=== PATIENT | male | born 1930 | race Hispanic/Latino ===

== ENCOUNTER 2018-05-29 16:04 | Inpatient (IN) | payer MEDICARE ==
[~2018-05-29] VITALS: Ht 177.8 cm; Wt 113.1 kg
[2018-05-29 17:32] LABS: BASOPHILS % 0.6 % (0.0-1.0); EOSINOPHILS # (AUTO) 0.2 (0.0-0.4); HEMATOCRIT 43.9 % (38.2-49.6); HEMOGLOBIN 14.6 g/dL (14.0-18.0); LYMPHOCYTES # (AUTO) 2.4 (1.0-3.2); LYMPHOCYTES % 45.7 % (18.0-39.1); MEAN CORPUSCULAR HEMOGLOBIN 31.4 pg (28-32); MEAN CORPUSCULAR HGB CONC 33.3 g/dL (31-35); MEAN CORPUSCULAR VOLUME 94.4 fL (81-99); MONOCYTES # (AUTO) 0.5 (0.2-0.8); MONOCYTES % 10.2 % (4.4-11.3); NEUTROPHILS # (AUTO) 2.1 (2.1-6.9); NEUTROPHILS % 40.3 % (38.7-80.0); PLATELET COUNT 167 x10e3/uL (140-360); RED BLOOD COUNT 4.65 x10e6/uL (4.3-5.7); RED CELL DISTRIBUTION WIDTH 14.9 % (11.7-14.4)
[2018-05-29 17:39] LABS: PARTIAL THROMBOPLASTIN TIME 32.3 seconds (23.8-35.5)
[2018-05-29 17:47] LABS: CREATINE KINASE 46 IU/L (30-200)
[2018-05-29 17:48] LABS: INR 0.99
[2018-05-29 17:51] LABS: ALANINE AMINOTRANSFERASE 22 IU/L (0-55); ALBUMIN 3.6 g/dL (3.5-5.0); ALBUMIN/GLOBULIN RATIO 1.2 (0.8-2.0); ALKALINE PHOSPHATASE 69 IU/L (40-150); ANION GAP 10.1 mmol/L (8-16); BLOOD UREA NITROGEN 18 mg/dL (7-26); BUN/CREATININE RATIO 22 (6-25); CALCIUM 9.6 mg/dL (8.4-10.2); CARBON DIOXIDE 26 mmol/L (22-29); CHLORIDE 106 mmol/L (98-107); CREATININE, SERUM 0.82 mg/dL (0.72-1.25); EST GLOMERULAR FILTRATION RATE > 60 ML/MIN (60-); GLUCOSE 89 mg/dL (74-118); POTASSIUM 4.1 mmol/L (3.5-5.1); SODIUM 138 mmol/L (136-145)
--- NOTE | 2018-05-29 18:12 | Diagnostic Imaging Report ---
EXAMINATION: CHEST SINGLE (PORTABLE) INDICATION: ^CHEST PAIN ^[id number] ^1720 ^Y COMPARISON: None FINDINGS: AP view TUBES and LINES: None. LUNGS: Lungs are well inflated. Left lower lobe consolidation. Bilateral interstitial edema. PLEURA: No pleural effusion or pneumothorax. HEART AND MEDIASTINUM: Mild enlargement of the cardiac silhouette. Mild atherosclerotic calcifications of the aortic arch. BONES AND SOFT TISSUES: No acute osseous lesion. Soft tissues are unremarkable. UPPER ABDOMEN: No free air under the diaphragm. IMPRESSION: Left lower lobe consolidation suggestive of pneumonia. Recommend follow-up chest radiograph in 4-6 weeks. Bilateral interstitial edema. Signed by: Dr. Anca Mancuso M.D. on 05/29/2018 6:08 PM
[2018-05-29 21:24] VITALS: BP 152/67
--- NOTE | 2018-05-29 21:24 | NUR ---
PT ARRIVED ON THE UNIT VIA STRETCHER 2123. PT IS A&OX3. RESPIRATION IS EVEN AND UNLABORED, NO DISTRESS NOTED. BED IN THE LOWEST POSITION, LOCKED, BED ALARM ON, AND CALL LIGHT WITHIN REACH. ADMISSION AND HEAD TO TOE ASSESSMENT COMPLETED. WILL CONTINUE TO MONITOR.
[2018-05-29] MEDS ORDERED: LIPITOR20 MG (23:16)
[2018-05-30] VITALS (12 sets, daily range): BP systolic 123–182; BP diastolic 57–75
[2018-05-30 00:46] LABS: CREATINE KINASE 38 IU/L (30-200)
[2018-05-30 05:35] LABS: CREATINE KINASE MB < 1.00 ng/mL (0-4.3)
--- NOTE | 2018-05-30 07:01 | NUR ---
PATIENT IS AWAKE AND IN STABLE CONDITION WITH NO S/S OF RESPIRATORY DISTRESS. NO PAIN VOICED. PATIENT DENIES ANY CHEST PAIN. TELEMETRY APPLIED. BED ALARM APPLIED. PATIENT IS CURRENTLY NPO FOR PROCEDURE TODAY. CALL LIGHT IS WITHIN REACH, PATIENT INSTRUCTED TO CALL FOR ASSISTANCE NEEDED.
[2018-05-30 07:22] LABS: CREATINE KINASE 32 IU/L (30-200)
[2018-05-30 10:00] LABS: CREATINE KINASE MB < 1.00 ng/mL (0-4.3)
[2018-05-30 13:56] LABS: CHOL/HDL RATIO 2.8 (3.9-4.7)
--- NOTE | 2018-05-30 14:58 | Consultation ---
DATE OF CONSULTATION: 05/30/2018 Cardiology Consult Note REASON FOR CONSULT: Bradycardia and shortness of breath. CHIEF COMPLAINT: Shortness of breath and dizziness. HISTORY OF PRESENT ILLNESS: The patient is an 88-year-old man, history of hypertension, hyperlipidemia, who presents with worsening shortness of breath and dizziness, was found to have severe bradycardia with 2:1 block, is admitted for pacemaker placement. REVIEW OF SYSTEMS: As above, otherwise negative. OUTPATIENT MEDICATIONS: Reviewed. SOCIAL HISTORY: The patient does not smoke, drink, or abuse drugs. FAMILY HISTORY: No family history of early CAD or sudden cardiac . OBJECTIVE: VITAL SIGNS: Temperature 97.6, pulse 36, respiratory rate 17, blood pressure 150/67, saturating 98% on room air. GENERAL: Elderly man, well developed, well nourished, no acute distress. CARDIOVASCULAR: Bradycardic, irregular. No murmurs, rubs, or gallops. Palpable carotid pulses. Palpable radial pulses. LUNGS: Clear to auscultation bilaterally. ABDOMEN: Soft, nontender, nondistended. NEURO AND PSYCH: Alert, oriented to person, place, and time. Normal affect. INPATIENT MEDICATIONS: Reviewed. LABORATORY DATA: Reviewed. Troponins negative x2. IMAGING DATA: Reviewed. TELEMETRY DATA: Reviewed, shows 2:1 AV block with heart rates in the 30s. ASSESSMENT: 1. Symptomatic bradycardia. 2. Mobitz type 2 second-degree AV block. PLAN: For permanent pacemaker placement today. Echocardiogram reviewed. His LV function is normal. Ejection fraction 50% to 55%. No significant valvular abnormalities. Thank you for this consult. We will continue to follow. MD DEISY Ordoñez/DEIRDREL /[id number]
--- NOTE | 2018-05-30 16:24 | NUR ---
PATIENT OFF THE UNIT AT 1621 TO [employer]ARD [employer] HAND ENGRAVER FOR SCHEDULED PROCEDURE TODAY. PATIENT IS IN STABLE CONDITION WITH NO S/S OF RESPIRATORY DISTRESS. NO PAIN VOICED.
[2018-05-30] MEDS ORDERED: MIDAZOLAM HCL 2 MG/2 ML VIAL ONE (16:45)
[2018-05-30] MEDS ORDERED: IOPAMIDOL 300MG/ML 100 ML INFUS..BTL IV ONE (16:45)
[2018-05-30] MEDS ORDERED: FENTANYL CITRATE/PF 100MCG/2 ML INJ ONE (16:45)
[2018-05-30] MEDS ORDERED: LIDOCAINE 1% W/EPINEPHRINE 20 ML VIAL ONE ×2 (16:45→17:00)
[2018-05-30] MEDS ORDERED: VANCOMYCIN 1GM/NS 250 ML 250 ML ONE (16:46)
[2018-05-30] MEDS ORDERED: SODIUM CHLORIDE 0.9% 1000ML 1,000 ML ONE ×2 (16:46→16:59)
--- NOTE | 2018-05-30 16:57 | NUR ---
PT OUT FOR PROCEDURE
[2018-05-30] MEDS ORDERED: BACITRACIN 50,000 UNIT VIAL ONE (17:04)
--- NOTE | 2018-05-30 17:55 | NUR ---
Report provided to Jaycee IGLESIAS, review of procedural findings and medications given. Patient drowsy, easily aroused. maintains airway and room air saturations of 96-98%. No gross issues of pressure, pain, pallor or dysrhythmia. IV site patent with Vancomycin infusing. patient hemodynamically stable with hemostasis left chest dressing CDI w/o s/s of bleeding. [facility]. Overall skin integrity remains intact. [place] [facility] [place] Pacemaker (code-laboration) Sheath puller: Meds Given Intra-Procedure Sedatives Versed - 2 mg Fentanyl - 75 mcg Fluids Input - 200 Output Contrast Isovue 370 - 10ml Other Meds Vancomycin 1 gram IVPB Addendum: 05/30/18 at 1756 by Deandre Solano RN pt with left arm immobilizer in place and transported on telemetry
--- NOTE | 2018-05-30 18:12 | NUR ---
PATIENT ARRIVED BACK ON THE UNIT FROM CNC MACHINIST. PACEMAKER PLACED. SLING IN PLACE TO LEFT ARM. PATIENT IS TO REMAIN ON HIS BACK UNTIL 1000 AM TOMORROW: 05/31/18- PATIENT IS AWARE. FAMILY MEMBERS PRESENT IN ROOM. VANCOMYCIN INFUSING AT THIS TIME. CALL LIGHT IS WITHIN REACH, INSTRUCTED TO CALL FOR ASSISTANCE NEEDED.
--- NOTE | 2018-05-30 18:59 | NUR ---
PATIENT IS IN STABLE CONDITION WITH NO S/S OF RESPIRATORY DISTRESS. NO PAIN VOICED. TELEMETRY APPLIED. FAMILY MEMBERS PRESENT. CALL LIGHT IS WITHIN REACH, PATIENT INSTRUCTED TO CALL FOR ASSISTANCE NEEDED. REPORT GIVEN TO ONCOMING NURSE.
--- NOTE | 2018-05-30 19:00 | NUR ---
patient received awake, alert, sitting up in bed eating jello. no c/o pain noted. dressing to left chest pacemaker site c,d,i. sling to left arm remains in place. patient to remain on bedrest x 24 hrs. patient verbalizes understanding of this. many family members noted at the bedside. patient/family instructed to call for assistance when needed.
--- NOTE | 2018-05-30 19:21 | Diagnostic Imaging Report ---
EXAMINATION: CHEST SINGLE (PORTABLE) INDICATION: ^POST AV PACEMEAKER PLACEMENT ^[id number] ^1850 COMPARISON: Chest radiograph 05/29/2018 FINDINGS: AP view TUBES and LINES: Interval placement of a 2-lead pacemaker device in the left upper chest with leads overlying the right atrial appendage and right ventricle. The right ventricular lead is faintly seen. But it appears to cross midline. LUNGS: Lungs are well inflated. Improved bilateral pulmonary edema. Previously noted left lower lobe consolidation has nearly resolved and is suggestive of loculated fluid rather than pneumonia. PLEURA: No pleural effusion or pneumothorax. HEART AND MEDIASTINUM: The cardiomediastinal silhouette is unremarkable.. BONES AND SOFT TISSUES: No acute osseous lesion. Soft tissues are unremarkable. UPPER ABDOMEN: No free air under the diaphragm. IMPRESSION: Interval placement of a 2-lead pacemaker as described above. No pneumothorax. Improved bilateral pulmonary edema. Left lower lobe consolidation has nearly resolved suggestive of decreasing edema rather than pneumonia. Signed by: Dr. Anca Mancuso M.D. on 05/30/2018 7:18 PM
[2018-05-30] MEDS: MINOCYCLINE HCL 50 MG CAP PO SCH (20:24)
[2018-05-30] MEDS ORDERED: ATORVASTATIN 20 MG TAB PO SCH (21:00)
[2018-05-30] MEDS: ACETAMINOPHEN/CODEINE 300MG - 30MG TAB PO PRN (22:58)
--- NOTE | 2018-05-30 22:58 | NUR ---
patient medicated with tylenol #3 1 tab po for c/o left chest pacemaker site pain 08/08. will continue to monitor.
[2018-05-31 05:30] VITALS: BP 137/79
[2018-05-31] MEDS: ACETAMINOPHEN/CODEINE 300MG - 30MG TAB PO PRN (06:27)
[2018-05-31 07:24] VITALS: BP 144/71
[2018-05-31 09:20] VITALS: BP 144/71
--- NOTE | 2018-05-31 09:20 | NUR ---
Pt received resting in bed. Alert and oriented x4. Left arm in sling, s/p PPM inserttion. Oriented to staff and surroundings, encouraged to press call torres if help needed. Emotional support given. Fall precautions maintained. Will monitor
[2018-05-31] MEDS: MINOCYCLINE HCL 50 MG CAP PO SCH (09:22)
[2018-05-31 11:20] VITALS: BP 135/74
[2018-05-31] MEDS ORDERED: TYLENOL WITH C1 EACH PO (14:45)
[2018-05-31] MEDS ORDERED: MINOCYCLINE HCL50 MG PO (14:45)
--- NOTE | 2018-05-31 15:13 | NUR ---
Pt and family given discharge instructions regarding meds, diet, activities, and follow up appointment with PCP. Pt verbalized understanding of teaching. Left off unit in wheelchair to private car
--- NOTE | 2018-06-01 06:46 | Discharge Summary ---
REASON FOR ADMISSION: 2:1 AV block. DISCHARGE DIAGNOSES: 1. Symptomatic bradycardia. 2. Mobitz type 2 second-degree atrioventricular block. PROCEDURES: Permanent pacemaker implantation. CONSULTANTS: Electrophysiology. HISTORY OF PRESENT ILLNESS AND HOSPITAL COURSE: This is an 88-year-old male with history of hypertension and hyperlipidemia, who presents with complaints of shortness of breath and dizziness. He was found to have severe bradycardia with 2:1 AV block and was admitted for permanent pacemaker placement. The patient tolerated the procedure well without complications. He was observed in the hospital overnight and discharged home the following day in stable condition. MEDICATIONS: Please see medication reconciliation. FOLLOWUP: 1. Dr. Duarte in 2 weeks. 2. PAUL Siddiqui, 2 weeks. ACTIVITY: As tolerated. Arm restrictions on the left were discussed with the patient. DIET: Heart healthy, low-sodium diet. PHYSICAL EXAMINATION: VITAL SIGNS: Reviewed. GENERAL: Awake and alert, no acute distress. LUNGS: Clear to auscultation bilaterally. No wheeze or crackles. CARDIOVASCULAR: Normal rate, regular rhythm. No murmur. Normal S1, S2. ABDOMEN: Soft and nontender. EXTREMITIES: A 1+ pitting edema. Telemetry, V paced. Lesa Zacarias MD ABS/MODL /[id number]
== END 2018-05-31 15:23 | disposition home or self-care (01) | DRG 244 ==
LOC: ER 16:04 → ERHOLD 16:26 → MED/SURG3 21:28
PROVIDERS: ADMIT Internal Medicine Interventional Cardiology; ATTEND Internal Medicine Interventional Cardiology
PROC: 0JH606Z Insertion of Pacemaker, Dual Chamber into Chest Subcutaneous Tissue and Fascia, Open Approach (ICD-10-PCS; principal; 2018-05-30)
PROC: 02H63JZ Insertion of Pacemaker Lead into Right Atrium, Percutaneous Approach (ICD-10-PCS; 2018-05-30)
PROC: 02HK3JZ Insertion of Pacemaker Lead into Right Ventricle, Percutaneous Approach (ICD-10-PCS; 2018-05-30)
DX: I44.1 Atrioventricular block, second degree (principal); E78.5 Hyperlipidemia, unspecified; I10 Essential (primary) hypertension
CPT/HCPCS: 33208; 36415; 71045; 80053; 80061; 82550; 82553; 83880; 84484; 85025; 85610; 85730; 93005; 93306; 99284; J2250; J3370; J7030; Q9967